=== PATIENT | female | born 1985 | race Two or more races ===

== ENCOUNTER 2022-10-30 12:31 | Inpatient (IN) | payer OTHER ==
[~2022-10-30] VITALS: Ht 160 cm; Wt 3.2 kg
[2022-11-22] MEDS ORDERED: OXYC1TAB9 PO (10:41)
[2022-11-22] MEDS ORDERED: KETO10TA2 PO (10:41)
== END 2022-11-22 11:58 | disposition home or self-care (01) | DRG 788 ==
LOC: LDR 11-18 15:00 → OB/GYN 11-20 08:51 → LDR 11-20 08:51 → O/R 11-20 12:37 → OB/GYN 11-20 12:39
PROVIDERS: Obstetrics & Gynecology Maternal & Fetal Medicine; ADMIT Obstetrics & Gynecology Gynecology; ATTEND Obstetrics & Gynecology Gynecology
PROC: 4A1HXCZ Monitoring of Products of Conception, Cardiac Rate, External Approach (ICD-10-PCS; 2022-11-20)
PROC: 10D00Z1 Extraction of Products of Conception, Low, Open Approach (ICD-10-PCS; principal; 2022-11-20 11:15)
DX: O36.8130 Decreased fetal movements, third trimester, not applicable or unspecified (principal); Z3A.40 40 weeks gestation of pregnancy; Z37.0 Single live birth; Z20.822 Contact with and (suspected) exposure to COVID-19

== ENCOUNTER 2022-11-12 12:10 | Outpatient (CLI) | payer OTHER | END 2022-11-12 13:22 | disposition home or self-care (01) | LOC: NST 12:10 | PROVIDERS: ATTEND Obstetrics & Gynecology | DX: Z34.83 Encounter for supervision of other normal pregnancy, third trimester (principal) ==

== ENCOUNTER 2022-11-17 11:24 | Outpatient (CLI) | payer OTHER | END 2022-11-17 12:15 | disposition home or self-care (01) | LOC: NST 11:24 | PROVIDERS: ATTEND Obstetrics & Gynecology Maternal & Fetal Medicine | DX: Z34.83 Encounter for supervision of other normal pregnancy, third trimester (principal) ==

== ENCOUNTER 2022-11-20 08:20 | Outpatient (CLI) | payer OTHER | END 2022-11-20 08:52 | disposition still patient (30) | LOC: NST 08:20 | PROVIDERS: ATTEND Obstetrics & Gynecology Maternal & Fetal Medicine | DX: Z34.83 Encounter for supervision of other normal pregnancy, third trimester (principal) ==

== ENCOUNTER 2024-04-26 06:26 | Day surgery (SDC) | payer OTHER ==
[2024-04-21 10:38] LABS: HEMATOCRIT 40.9 % (36.0-45.00); HEMOGLOBIN 13.8 g/dL (12.0-15.00); MEAN CELL VOLUME 87.2 fL (80.00-100.00); MEAN CORPUSCULAR HEMOGLOBIN 29.5 pg (27.00-32.0); MEAN CORPUSCULAR HGB CONC 33.8 g/dl (32.0-36.0); PLATELET COUNT 215 K/uL (150-450); RED BLOOD COUNT 4.69 M/uL (4.00-6.00)
[2024-04-21 11:10] LABS: PARTIAL THROMBOPLASTIN TIME 29.1 SECONDS (22.0-34.0); PROTHROMBIN TIME 10.9 SECONDS (9.0-11.5)
[2024-04-21 11:18] LABS: PH,URINE 5.5 (5.0-8.0); URINE APPEARANCE Clear; URINE BILIRRUBIN Negative (NEGATIVE); URINE BLOOD Negative; URINE COLOR Yellow; URINE GLUCOSE Negative (NEGATIVE); URINE KETONE Negative (NEGATIVE); URINE LEUKOCYTE Trace; URINE NITRATE Negative; URINE PROTEIN Negative (NEGATIVE); URINE UROBILINOGEN 0.2 E.U./dl
[2024-04-21 11:19] LABS: URINE BACTERIA 576.4 uL (0.0-1933); URINE EPITHELIAL CELLS 24.6 uL (0.0-38.8)
[2024-04-21 11:20] LABS: BILIRUBIN TOTAL 0.52 mg/dL (0.3-1.2); CALCIUM 9.2 mg/dL (8.5-10.1); CREATININE SERUM 0.64 mg/dL (0.55-1.02); GFR 103.31; GLOBULINA 3.3 G/DL (2.4-3.5); POTASSIUM 4.29 mEq/L (3.5-5.1); TOTAL PROTEIN 7.3 gm/dL (6.4-8.2)
[2024-04-21 11:22] LABS: URINE CAST 0.14 uL (0.0-1.40)
[~2024-04-26 06:26] MED LIST: FIBER GUMMIES2 GM; FLONASE16 GM; KETO10TA2 PO; OXYC1TAB9 PO; PROBIOTIC1 EAC4 PO; ZYRTEC10 MG PO
[2024-04-26] MEDS ORDERED: POVIDONE-IODINE 118 ML BOTT TOP ONE (18:14)
[2024-04-26] MEDS ORDERED: RINGERS SOLUTION,LACTATED 1,000 ML IV SCH (18:15)
== END 2024-04-27 01:05 | disposition home or self-care (01) ==
LOC: CIR.AMB 06:26
PROVIDERS: ATTEND Obstetrics & Gynecology Gynecology
DX: N93.8 Other specified abnormal uterine and vaginal bleeding (principal); Z91.040 Latex allergy status; H52.10 Myopia, unspecified eye; J32.9 Chronic sinusitis, unspecified